=== PATIENT | female | born 1955 | race Caucasian/White ===

== ENCOUNTER 2017-03-30 01:57 | Emergency (ER) | payer OTHER ==
[~2017-03-30] VITALS: Ht 167.6 cm; Wt 65.0 kg
[~2017-03-30 01:57] MED LIST: AMOXICILLIN 8751 TAB PO; AUGMENTIN500 MG/TAB PO; CELEBREX; FLEXERIL10 MG PO; LEVOTHYROXIN0.125 MG PO; LORTAB 5/500 501 TAB PO; LORTAB 7.5/5001 TA1 PO; MULTIPLE VITAMI1 CAP PO; NEXIUM 20MG20 MG PO; NEXIUM20 MG PO; PROVENTIL0.09 MG/A1 IH; SEPTRA DS 8001 TAB PO; SYNTHROID0.125 MG/T PO; ZOFRAN4 MG PO
[2017-03-30 02:00] VITALS: BP 128/65; TEMP 98.1
[2017-03-30] MEDS ORDERED: SYNTHROID0.112 MG/T PO (02:24)
[2017-03-30] MEDS ORDERED: SYNTHROID0.1 MG/TAB PO (02:24)
[2017-03-30] MEDS ORDERED: PRILOSEC 20MG20 MG PO (02:25)
[2017-03-30] MEDS ORDERED: FLONASE NASAL S16 GM NS (02:26)
[2017-03-30] MEDS ORDERED: OS-CAL 500 + D1 TAB PO (02:27)
[2017-03-30] MEDS ORDERED: NATURAL E400 IU PO (02:27)
[2017-03-30] MEDS ORDERED: MASON NATURAL1000 MG PO (02:27)
[2017-03-30 02:30] LABS: PH 6 (5-8); SQUAMOUS EPITHELIAL None Seen /hpf; URINE APPEARANCE Cloudy; URINE BACTERIA Rare /hpf; URINE BILIRUBIN Negative (NEGATIVE); URINE BLOOD 3+ (NEGATIVE); URINE COLOR Yellow; URINE GLUCOSE Negative (NEGATIVE); URINE KETONE Negative (NEGATIVE); URINE RBC >50 /hpf; URINE UROBILINOGEN Negative (NEGATIVE)
[2017-03-30 02:31] LABS: URINE WBC >50 /hpf
[2017-03-30] MEDS ORDERED: PYRIDIUM200 M1 PO (03:00)
[2017-03-30] MEDS ORDERED: CEFTIN500 MG PO (03:00)
[2017-03-30 03:19] VITALS: PULSE 79
== END 2017-03-30 03:19 | disposition home or self-care (01) ==
LOC: COL.ER 01:57
PROVIDERS: Nurse Practitioner
DX: N39.0 Urinary tract infection, site not specified (principal); R31.9 Hematuria, unspecified; Z85.850 Personal history of malignant neoplasm of thyroid

== ENCOUNTER 2017-04-30 19:55 | Observation (INO) | payer OTHER ==
[~2017-04-30] VITALS: Ht 167.6 cm; Wt 59.3 kg
[~2017-04-30 19:55] MED LIST changes: +CEFTIN500 MG PO; +FLONASE NASAL S16 GM NS; +MASON NATURAL1000 MG PO; +NATURAL E400 IU PO; +OS-CAL 500 + D1 TAB PO; +PRILOSEC 20MG20 MG PO; +PYRIDIUM200 M1 PO; +SYNTHROID0.1 MG/TAB PO; +SYNTHROID0.112 MG/T PO
[2017-04-30] MEDS ORDERED: SINGULAIR 110 MG/TAB PO (20:44)
[2017-04-30] MEDS ORDERED: PROCARDIA XL 3030 MG (20:45)
[2017-04-30] MEDS ORDERED: ZANTAC 150150 MG PO (20:45)
[2017-04-30] MEDS ORDERED: CELEBREX 1100 MG/CAP PO (20:47)
[2017-04-30 21:50] VITALS: BP 120/67; PULSE 94; TEMP 98.5
[2017-05-01 01:39] VITALS: BP 102/65; PULSE 83; TEMP 98.3
[2017-05-01 05:22] VITALS: BP 102/58; PULSE 76; TEMP 97.6
[2017-05-01 07:24] LABS: BASO % 0.4 % (0.0-2.0); EOS % 0.4 % (0-4.0); GRAN # 8.9 (1.4-6.5); GRAN % 82.3 % (42.2-75.2); LYMPH # 1.5 (1.2-3.4); LYMPH % 13.8 % (20.0-51.0); MEAN CELL VOLUME 86 fl (80.0-100.0); MEAN CORPUSCULAR HGB CONC 32 g/dl (33.0-37.0); MEAN PLATELET VOLUME 11.3 fl (7.4-10.4); MONO # 0.3 (0.1-0.6); MONO % 2.6 % (1.7-9.3); PLATELET COUNT 239 K/mm3 (130-400); RED BLOOD COUNT 3.94 M/mm3 (4.10-5.30); REDCELL DISTRIBUTION WIDTH-CV 15.4 % (11.5-14.5); WHITE BLOOD COUNT 10.8 K/mm3 (4.8-10.8)
[2017-05-01 07:26] LABS: HEMATOCRIT 33.7 % (37.0-47.0); HEMOGLOBIN 10.8 g/dl (12.5-16.0); MEAN CORPUSCULAR HEMOGLOBIN 27 pg (27.0-31.0)
[2017-05-01 07:46] LABS: ADJUSTED CALCIUM 9.3 mg/dL (8.4-10.2); ALBUMIN 3.3 gm/dL (3.5-5.0); BILIRUBIN,TOTAL 0.9 mg/dL (0.0-1.0); CALCIUM 8.7 mg/dL (8.4-10.2); CREATININE, serum 0.68 mg/dL (0.52-1.25); POTASSIUM 3.5 mmol/L (3.4-5.0); TOTAL PROTEIN 6.1 gm/dL (6.4-8.2)
[2017-05-01 10:08] VITALS: BP 100/57; PULSE 74; TEMP 96.7
[2017-05-01 13:34] VITALS: BP 93/54; PULSE 78; TEMP 97.5
[2017-05-01 17:28] VITALS: BP 100/50; PULSE 71; TEMP 97.7
[2017-05-01 21:19] VITALS: BP 96/60; PULSE 68; TEMP 98.4
[2017-05-02 01:50] VITALS: BP 99/52; PULSE 70; TEMP 98.6
[2017-05-02 04:22] VITALS: BP 100/54; PULSE 68; TEMP 98.4
[2017-05-02 06:44] LABS: ADD PATHOLOGY DIFF REVIEW NO
[2017-05-02 06:54] LABS: MEAN CELL VOLUME 84 fl (80.0-100.0); MEAN CORPUSCULAR HGB CONC 32 g/dl (33.0-37.0); MEAN PLATELET VOLUME 11.2 fl (7.4-10.4); PLATELET COUNT 261 K/mm3 (130-400); RED BLOOD COUNT 3.86 M/mm3 (4.10-5.30); REDCELL DISTRIBUTION WIDTH-CV 15.5 % (11.5-14.5)
[2017-05-02 06:59] LABS: ADJUSTED CALCIUM 9.1 mg/dL (8.4-10.2); ALBUMIN 3.2 gm/dL (3.5-5.0); BILIRUBIN,TOTAL 0.7 mg/dL (0.0-1.0); CALCIUM 8.5 mg/dL (8.4-10.2); CREATININE, serum 0.62 mg/dL (0.52-1.25); POTASSIUM 3.4 mmol/L (3.4-5.0); TOTAL PROTEIN 5.9 gm/dL (6.4-8.2)
[2017-05-02 07:03] LABS: HEMATOCRIT 32.5 % (37.0-47.0); HEMOGLOBIN 10.5 g/dl (12.5-16.0); MEAN CORPUSCULAR HEMOGLOBIN 27 pg (27.0-31.0)
[2017-05-02 09:06] LABS: BAND 12 % (0-10); EOSINOPHIL 1 % (0-4); METAMYELOCYTE 3 % (0-0); MYELOCYTE 1 % (0-0); NEUTROPHILS 59 % (42.0-75.2); TOTAL CELLS COUNTED 100
[2017-05-02 09:07] LABS: ANISOCYTOSIS 1+; PLATELET ESTIMATE NORMAL (NORMAL)
[2017-05-02 09:35] VITALS: BP 98/60; PULSE 71; TEMP 98.4
== END 2017-05-02 12:45 | disposition home or self-care (01) ==
LOC: SURG 19:55
PROVIDERS: Surgery
DX: K52.9 Noninfective gastroenteritis and colitis, unspecified (principal); R10.32 Left lower quadrant pain; E89.0 Postprocedural hypothyroidism; Z85.850 Personal history of malignant neoplasm of thyroid; K21.9 Gastro-esophageal reflux disease without esophagitis; D64.9 Anemia, unspecified; K59.09 Other constipation; Z90.721 Acquired absence of ovaries, unilateral; Z90.710 Acquired absence of both cervix and uterus
CPT/HCPCS: G0378; J2543; J7030; J7042; J7050

== ENCOUNTER 2017-06-09 13:01 | Inpatient (IN) | payer OTHER ==
[~2017-06-09] VITALS: Ht 167.6 cm; Wt 57.7 kg
[~2017-06-09 13:01] MED LIST changes: +CELEBREX 1100 MG/CAP PO; +PROCARDIA XL 3030 MG; +SINGULAIR 110 MG/TAB PO; +ZANTAC 150150 MG PO
[2017-06-15] VITALS (10 sets, daily range): BP systolic 104–149; BP diastolic 61–84; PULSE 62–81; TEMP 97.7–97.9
[2017-06-15] MEDS ORDERED: PROCARDIA10 MG PO (13:16)
--- NOTE | 2017-06-15 13:30 | NUR ---
The patient ambulated back to [place] [facility] independently using a steady gait and appeared to tolerate the activity well. Vital signs obtained. Consent signed. 18G IV started in left wrist with one stick, LR infusing without difficulty. Assessment completed at this time. Blood obtained from IV start for lab as ordered. Call light is within reach. Will continue to monitor the patient.
[2017-06-15 13:40] LABS: HEMATOCRIT 40.5 % (37.0-47.0); HEMOGLOBIN 13.2 g/dl (12.5-16.0)
--- NOTE | 2017-06-15 18:30 | NUR ---
Patient is back from surgery. Oriented patient to room. Denies pain and nausea at this time. Explained that this is change of shift time and that she will have a different nuse soon. Ice chips given to patient and explained when she feels ready she can have clear liquids. No other changes at this time. Call light within reach.
--- NOTE | 2017-06-15 21:45 | NUR ---
PATIENT WITH FAMILY. DOING WELL. REFUSED TYLENOL. WANTS TO SEE IF SHE CAN MOVE ROOMS SO SHE'S AWAY FROM THE NURSES STATION. I TOLD HER WE ARE UNABLE TO DO THAT TONIGHT SINCE WE ARE ALMOST FULL. DRESSING TO LAP SITES CDI WITH BANDADES 5 LAP SITES, 1 TRANSVERSE DRESSING WITH GAUZE TO RIGHT SIDE OF BELLY BUTTON. PATIENT IS VERY MODEST AND SHY TO SHOW BELLY. WILL CONTINUE TO MONITOR.
[2017-06-16 05:00] VITALS: BP 95/58; PULSE 65; TEMP 97.7
--- NOTE | 2017-06-16 08:00 | NUR ---
PATIENT IS A&O. VSS. REPORTS PAIN IS MILD AND DENIES NEED FOR PAIN MEDS AT THIS TIME. NOTED ABDOMINAL LAP SITES X5 CD&I WITH BANDAID. ABDOMINAL TRANSVERSE IS CD&I WITH GAUZE. ABDOMIN IS FLAT AND SOFT. POSITIVE BOWL SOUNDS X4 QUADS. NO C/O N/V. IV FLUIDS INFUSING INTO LEFT WRIST IV VIA PUMP. AM MEDS GIVEN. TINSLEY TO DEPENDENT DRAINAGE WITH MOD AMOUNTS OF CLEAR YELLOW URINE NOTED. GENERAL DIET ORDERED. PATIENT ADVANCING HER DIET TO TOLERATION AND IS LOOKING AT MENU. HEAD TO TOE ASSESSMENT COMPLETE. NURSING EDUCATED ABOUT I.S. PATIENT SEEMED UNSURE. A&P LUNG COHEN CTA. NO OTHER NEEDS. CALL LIGHT IN REACH.
--- NOTE | 2017-06-16 10:01 | NUR ---
Initial visit; Patient thanked [employer] for looking in on her and offering prayer of thanksgiving for good results from tests and [employer] informing her she would be offered Holy Communion if she remains hospitalized today.
[2017-06-16 10:06] VITALS: BP 93/51; PULSE 70; TEMP 98
--- NOTE | 2017-06-16 10:55 | NUR ---
ROUNDED, SEE ORDERS. DC'D TINSLEY. TINSLEY CATH TIP INTACT AND PATIENT TOLERATED WELL. NOTED 450CC OF CLEAR YELLOW URINE NOTED. URINE HAT IN BATHROOM AND PATIENT GIVEN POST TINSLEY REMOVAL EDUCATION. IV TO INT. PATIENT GETTING DRESSED IN HER OWN CLOTHES PER HER REQUEST. NO C/O N/V. DIET ADVANCING TO TOLERATION.
[2017-06-16 11:17] LABS: HEMATOCRIT 37.3 % (37.0-47.0); HEMOGLOBIN 12.2 g/dl (12.5-16.0)
[2017-06-16 11:29] LABS: CALCIUM 9.5 mg/dL (8.4-10.2); CREATININE, serum 0.61 mg/dL (0.52-1.25); POTASSIUM 3.5 mmol/L (3.4-5.0)
--- NOTE | 2017-06-16 12:00 | NUR ---
PATIENT VOIDED X1 POST TINSLEY REMOVAL. PATIENT PUTT HER OWN CLOTHES ON AFTER TINSLEY REMOVAL AND IS AMBULATING IN HALLWAY WITH STEADY GAIT. PAIN WELL MANAGED. NO C/O N/V. PATIENT DRINKING LOTS OF WATER. WILL MONITOR.
[2017-06-16 13:45] VITALS: BP 129/67; PULSE 75; TEMP 97.7
--- NOTE | 2017-06-16 14:45 | NUR ---
PATIENT AMBULATING IN HALLWAY WITH STEADY GAIT INDEPENDENTLY. PATIENT DRINKING LOTS OF WATER AND URINE IS CLEAR YELLOW. PATIENT NEED FOR PAIN MEDS. NO NEEDS.
[2017-06-16 17:36] VITALS: BP 104/61; PULSE 74; TEMP 97.9
[2017-06-16 21:48] VITALS: BP 127/70; PULSE 71; TEMP 98.4
--- NOTE | 2017-06-16 22:20 | NUR ---
PATIENT DOING WELL. TOOK A SHOWER THIS EVENING. IV TO INT LEFT WRIST. LAP SITES SCANT DRAINAGE. NO COMPLAINTS OF PAIN. JUST SHOULDER AND NECK SORENESS. PATIENT HAD BOWEL MOVEMENT. SMALL, LOOSE, DARK BROWN WITH DARK RED BLOOD AROUND BM. WILL CONTINUE TO MONITOR.
[2017-06-17 06:22] VITALS: BP 107/55; PULSE 66; TEMP 98.1
--- NOTE | 2017-06-17 07:48 | NUR ---
PATIENT INDEPENDENT. NO TO LITTLE PAIN. REFUSED TYLENOL DURING THE NIGHT. NO ISSUES. SLEPT ALL NIGHT. GAVE BEDSIDE SHIFT REPORT TO CHRISTIANE CONNELLY.
--- NOTE | 2017-06-17 08:00 | NUR ---
PATIENT IS ORIENTED. VSS. PATIENT REPORTS SHE IS A LITTLE SORE BUT DENIES ANY PAIN. ABDOMIN IS FLAT WITH POSITIVE BOWL SOUNDS. NO C/O N/V. IV TO INT. PATIENT TOLERATING DIET WELL AND IS DRINKING LOTS OF WATER. PATIENT VOIDING CLEAR PALE COLORED URINE. CHICK GRADER REPORTS PATIENT HAD SMALL AMOUNTS OF BLOOD AROUND RONDA LAST NIGHT WHICH APPEARED TO BE NORMAL POST COLECTOMY, SURGEON AWARE. ABDOMINAL LAP SITES NOTED DRAINAGE TO BANDAIDS AND TRANSVERSE SUPERPUBIC INCISION. APPLIED NEW BANDAIDS TO LAP SITES AND 2X2 GAUZE & HYPAFIX TO SUPERPUBIC INCISION. PATIENT MOVING AROUND INDEPENDENTLY WITH STEADY GAIT. PATIENT HOPING TO DISCHARGE HOME LATER TODAY. HEAD TO TOE ASSESSMENT WNL. NO OTHER NEEDS. STUDENT NURSE WORKING WITH PATIENT TODAY, SEE STUDENT NOTES. CALL LIGHT IN REACH.
--- NOTE | 2017-06-17 10:36 | NUR ---
Patient is in good spirits this morning, consumed all of her breakfast. She denies pain this evening. Dressings on abdomen are clean, dry, and intact.
[2017-06-17 11:31] LABS: HEMOGLOBIN 12.4 g/dl (12.5-16.0)
--- NOTE | 2017-06-17 12:56 | NUR ---
INT removed from left hand at 1115, patient tolerated well. She denies pain at this time. No redness or edema present. Catheter tip in place upon removal.
--- NOTE | 2017-06-17 14:01 | NUR ---
this NCM visited with Deb. She is post op robotic colon resection. She has been abulating and increasing her diet. She lives with her spouse and daughter. Her PCP is From [place] and she receives her medications there also. Deb's spouse is retired . She is very independent with ADL's and I do not anticipate any needs. I am here if something should arise.
--- NOTE | 2017-06-17 17:25 | NUR ---
PATIENT DISCHARGING HOME VIA AMBULATORY. GAVE DISCHARGE INSTRUCTIONS, PRESCRIPTION AND FOLLOW UP APT. ANSWERED ALL QUESTIONS/CONCERNS. IV DC'D EARLIER TODAY BY STUDENT. SENT HOME PERSONAL BELONGINGS. PATIENT DISCHARGING WITH FRIEND TO PERSONAL VEHICLE.
== END 2017-06-17 17:25 | disposition home or self-care (01) | DRG 331 ==
LOC: INPTSU 06-15 12:22 → SURG 06-15 12:22
PROVIDERS: Nurse Anesthetist, Certified Registered; ADMIT Surgery
PROC: 8E0W4CZ Robotic Assisted Procedure of Trunk Region, Percutaneous Endoscopic Approach (ICD-10-PCS; 2017-06-15)
PROC: 0DBL4ZZ Excision of Transverse Colon, Percutaneous Endoscopic Approach (ICD-10-PCS; principal; 2017-06-15 14:30)
DX: D12.3 Benign neoplasm of transverse colon (principal); K52.9 Noninfective gastroenteritis and colitis, unspecified; D50.0 Iron deficiency anemia secondary to blood loss (chronic)
CPT/HCPCS: A4315; A9284; J0694; J1100; J1650; J1885; J2250; J2270; J2405; J2704; J2765; J3010; J7042; J7120

== ENCOUNTER 2017-09-20 23:38 | Emergency (ER) | payer OTHER ==
[~2017-09-20] VITALS: Ht 167.6 cm; Wt 59.1 kg
[~2017-09-20 23:38] MED LIST changes: +PROCARDIA10 MG PO
[2017-09-20 23:46] VITALS: BP 143/73; PULSE 77; TEMP 97.9
[2017-09-21 00:35] LABS: BASO # 0.1 (0.0-0.2); BASO % 0.8 % (0.0-2.0); EOS # 0.1 (0.0-0.7); EOS % 0.8 % (0-4.0); GRAN # 2.7 (1.4-6.5); GRAN % 41.4 % (42.2-75.2); LYMPH # 3.2 (1.2-3.4); LYMPH % 50.3 % (20.0-51.0); MEAN CELL VOLUME 71 fl (80.0-100.0); MEAN CORPUSCULAR HGB CONC 30 g/dl (33.0-37.0); MONO # 0.4 (0.1-0.6); MONO % 6.4 % (1.7-9.3); PLATELET COUNT 422 K/mm3 (130-400); RED BLOOD COUNT 5.02 M/mm3 (4.10-5.30); WHITE BLOOD COUNT 6.4 K/mm3 (4.8-10.8)
[2017-09-21 00:38] LABS: HEMATOCRIT 35.5 % (37.0-47.0); HEMOGLOBIN 10.7 g/dl (12.5-16.0); MEAN CORPUSCULAR HEMOGLOBIN 21 pg (27.0-31.0)
[2017-09-21 00:45] LABS: ALANINE AMINOTRANSFERASE 33 U/L (9-52); ALBUMIN 5.4 gm/dL (3.5-5.0); ALKALINE PHOSPHATASE 91 U/L (50-136); ANION GAP 12 mmol/L (7-16); BILIRUBIN,TOTAL 0.6 mg/dL (0.0-1.0); BLOOD UREA NITROGEN 14 mg/dL (7-17); CALCIUM 10.1 mg/dL (8.4-10.2); CARBON DIOXIDE 26 mmol/L (22-30); CHLORIDE 101 mmol/L (98-107); CREATININE, serum 0.64 mg/dL (0.52-1.25); GLUCOSE 97 mg/dL (74-106); LIPASE 100 U/L (23-300); POTASSIUM 3.3 mmol/L (3.4-5.0); SODIUM 139 mmol/L (137-145); TOTAL PROTEIN 8.4 gm/dL (6.4-8.2)
[2017-09-21 00:57] LABS: TROPONIN-I < 0.012 ng/mL (0.000-0.034)
== END 2017-09-21 01:29 | disposition home or self-care (01) ==
LOC: COL.ER 23:38
PROVIDERS: Physician Assistant
DX: F41.9 Anxiety disorder, unspecified (principal); R12 Heartburn; D64.9 Anemia, unspecified; K21.9 Gastro-esophageal reflux disease without esophagitis; E03.9 Hypothyroidism, unspecified; Z85.038 Personal history of other malignant neoplasm of large intestine; Z85.850 Personal history of malignant neoplasm of thyroid

== ENCOUNTER 2017-11-05 14:37 | Day surgery (SDC) | payer OTHER ==
[~2017-11-05] VITALS: Ht 167.6 cm; Wt 58.4 kg
[2017-11-05 15:01] VITALS: BP 120/75; PULSE 86; TEMP 97.9
[2017-11-05] MEDS ORDERED: FLEXERIL 1010 MG/TAB PO (15:09)
[2017-11-05] MEDS ORDERED: ZYRTEC 10MG10 MG PO (15:09)
[2017-11-05] MEDS ORDERED: B-121000 MCG PO (15:10)
[2017-11-05 16:10] VITALS: BP 114/74; PULSE 93; TEMP 97.8
[2017-11-05 16:15] VITALS: BP 116/71; PULSE 91
[2017-11-05 16:30] VITALS: BP 118/75; PULSE 91
== END 2017-11-05 16:55 | disposition home or self-care (01) ==
LOC: SDCO 14:37
DX: K21.9 Gastro-esophageal reflux disease without esophagitis (principal); K31.7 Polyp of stomach and duodenum
CPT/HCPCS: OP; J2250; J2405; J3010; J7030